=== PATIENT | male | born 1970 | race Caucasian/White ===

== ENCOUNTER 2017-03-23 11:09 | Outpatient (CLI) | payer BC, OTHER ==
[2017-03-23 12:31] LABS: Hemoglobin 11.3 g/dL (14.0-18.0); Mean Corpuscular HGB CONC 32.4 g/dL (32.0-36.0); Mean Corpuscular Hemoglobin 24.1 pg (27.0-31.0); Mean Corpuscular Volume 74.3 fl (80.0-94.0); Mean Platelet Volume 6.8 fL (7.4-10.4); Platelet Count 114 thou/uL (130-400); RBC Distribution Width 14.5 % (11.5-14.5); Red Blood Cell (RBC) Count 4.68 mill/uL (4.70-6.10); White Blood Cell (WBC) Count 5.7 thou/uL (4.8-10.8)
[2017-03-23 12:49] LABS: ALT (SGPT) 18 U/L (8-55); AST (SGOT) 16 U/L (5-34); Albumin 3.7 g/dL (3.5-5.0); Alkaline Phosphatase 80 U/L (40-150); Anion Gap 14 mmol/L (10-20); BUN (Urea Nitrogen) 19 mg/dL (8.9-20.6); Bilirubin, Total 0.4 mg/dL (0.2-1.2); Calc. Creatinine Clearance 0 mL/min (70-130); Calcium 9.2 mg/dL (7.8-10.44); Carbon Dioxide 27 mmol/L (22-29); Cardiac Risk 3.1 (Less than 4.5); Chloride 106 mmol/L (98-107); Cholesterol 84 mg/dl (< 200 Desired); Estimated GFR-MDRD 57; Globulin 5.1 g/dL (2.4-3.5); Glucose 77 mg/dL (70-105); HDL Cholesterol 27 mg/dL (>60 Neg Risk); LDL Cholesterol, Calculated 46 mg/dL; Potassium 4.5 mmol/L (3.5-5.1); Protein, Total 8.8 g/dL (6.0-8.3); Sodium 142 mmol/L (136-145); Triglycerides 57 mg/dL (Less than 150); Uric Acid 8.7 mg/dL (3.5-7.2)
[2017-03-23 12:54] LABS: Eosinophils 2 % (0-10); Lymphocytes 61 % (21-51); MDiff Complete? YES; Microcytosis SLIGHT = 6-15 cells (100X) (0-5/hpf); Monocytes 6 % (0-10); Neutrophil 31 % (42-75); PLT Morphology Comment Appears Decreased
== END 2017-03-23 11:10 | disposition home or self-care (01) ==
LOC: HPCALD 11:09
PROVIDERS: ATTEND Physician Assistant
DX: Z13.220 Encounter for screening for lipoid disorders (principal); M1A.09X0 Idiopathic chronic gout, multiple sites, without tophus (tophi)
CPT/HCPCS: 36415; 80053; 80061; 84443; 84550; 85025

== ENCOUNTER 2021-01-04 15:43 | Emergency (ER) | payer BC, SELFPAY ==
[~2021-01-04 15:43] MED LIST: Iopamidol 370 76% 100 ML VIAL ONE
[2021-01-04] MEDS ORDERED: Aspirin Chewable 81 MG TAB ONE ×2 (16:14→16:39)
[2021-01-04] MEDS ORDERED: cefTRIAXone\\ROCEPHIN 2 GM VIAL ONE (16:14)
[2021-01-04] MEDS ORDERED: methylPREDNISolone Sod Succ/PF 125 MG/2 ML VIAL ONE (16:14)
[2021-01-04] MEDS ORDERED: Azithromycin 500 MG VIAL ONE ×2 (16:14→17:37)
[2021-01-04] MEDS ORDERED: Albuterol Sulfate 1.25 MG/3 ML NEB ONE ×2 (16:14→16:49)
[2021-01-04] MEDS ORDERED: Morphine 4 MG/ML VIAL ONE ×2 (16:16→16:54)
[2021-01-04] MEDS ORDERED: Sodium Chloride 0.9% 100 ML ONE (16:16)
[2021-01-04 16:19] LABS: Hemoglobin 15.7 g/dL (14.0-18.0); Mean Corpuscular HGB CONC 31.5 g/dL (32.0-36.0); Mean Corpuscular Hemoglobin 27.4 pg (27.0-31.0); Mean Corpuscular Volume 87.1 fL (78.0-98.0); Mean Platelet Volume 12.8 fL (7.4-10.4); Platelet Count 174 thou/uL (130-400); RBC Distribution Width 14.2 % (11.5-14.5); Red Blood Cell (RBC) Count 5.73 mill/uL (4.70-6.10); White Blood Cell (WBC) Count 20.2 thou/uL (4.8-10.8)
[2021-01-04] MEDS ORDERED: Fentanyl 100 MCG/2 ML VIAL ONE (16:20)
[2021-01-04 16:36] LABS: ALT (SGPT) 34 U/L (8-55); AST (SGOT) 20 U/L (5-34); Albumin 4.1 g/dL (3.5-5.0); Alkaline Phosphatase 103 U/L (40-110); Anion Gap 20 mmol/L (10-20); BUN (Urea Nitrogen) 10 mg/dL (8.4-25.7); Bilirubin, Total 2.2 mg/dL (0.2-1.2); Calc. Creatinine Clearance 0 mL/min (70-130); Calcium 10.1 mg/dL (7.8-10.44); Carbon Dioxide 25 mmol/L (22-29); Chloride 98 mmol/L (98-107); Glucose 139 mg/dL (70-105); Lipase 23 U/L (8-78); Potassium 3.1 mmol/L (3.5-5.1); Protein, Total 8.1 g/dL (6.0-8.3); Sodium 140 mmol/L (136-145)
[2021-01-04 16:38] LABS: Band 7 % (5-11); Large Platelets SLIGHT; Lymphocytes 1 % (21-51); MDiff Complete? YES; Monocytes 1 % (0-10); Neutrophil 89 % (42-75); Reactive Lymphocytes 2 % (0-10); Toxic Granulation SLIGHT; Vacuoles SLIGHT
[2021-01-04] MEDS ORDERED: Potassium Chloride 20 MEQ TAB ONE (16:54)
[2021-01-04 17:25] LABS: SARS-CoV-2 NAA Rapid Test Not Detected (NotDetected)
== END 2021-01-04 18:01 | disposition short-term general hospital (02) ==
LOC: BURERS 15:43
DX: A41.9 Sepsis, unspecified organism (principal); J18.9 Pneumonia, unspecified organism; R65.20 Severe sepsis without septic shock; I10 Essential (primary) hypertension; J90 Pleural effusion, not elsewhere classified; M10.9 Gout, unspecified; C88.0 Waldenstrom macroglobulinemia; M19.90 Unspecified osteoarthritis, unspecified site; F17.220 Nicotine dependence, chewing tobacco, uncomplicated; Z20.822 Contact with and (suspected) exposure to COVID-19; Z79.899 Other long term (current) drug therapy
CPT/HCPCS: 0240U; 71045; 71275; 80053; 83605; 83690; 83880; 84484; 85025; 85379; 87040; 93005; 96365; 96367; 96375; J0456; J0696; J2270; J2930; J3010; J3490; J7620; Q9967

== ENCOUNTER 2021-10-16 12:19 | Emergency (ER) | payer BC ==
[2021-10-16] MEDS ORDERED: Atropine Sulfate 1 mg/10 ml Syringe IVP ONE (12:20)
[2021-10-16] MEDS ORDERED: Calcium Chloride 1 GM/10 ML Abboject SYRINGE IVP ONE (12:20)
[2021-10-16] MEDS ORDERED: Rocuronium Bromide 10 MG/ML (10ML VIAL) IVPB ONE (12:20)
[2021-10-16] MEDS ORDERED: Sodium Bicarb 50 MEQ/50 ML Abboject 8.4% SYRINGE IVP ONE (12:20)
[2021-10-16] MEDS ORDERED: EPINEPHrine 1 MG/10 ML Abboject SYRINGE IVP ONE (12:20)
[2021-10-16] MEDS ORDERED: Ondansetron PF 4 MG/2 ML Vial ONE (12:33)
[2021-10-16 12:55] LABS: Hemoglobin 15.1 g/dL (14.0-18.0); Mean Corpuscular HGB CONC 33.8 g/dL (32.0-36.0); Mean Corpuscular Hemoglobin 27.5 pg (27.0-31.0); Mean Corpuscular Volume 81.3 fL (78.0-98.0); Mean Platelet Volume 13.7 fL (7.4-10.4); Platelet Count 112 thou/uL (130-400); RBC Distribution Width 13.2 % (11.5-14.5); Red Blood Cell (RBC) Count 5.51 mill/uL (4.70-6.10); White Blood Cell (WBC) Count 12.8 thou/uL (4.8-10.8)
[2021-10-16] MEDS ORDERED: Fentanyl 100 MCG/2 ML VIAL ONE ×2 (12:58→13:21)
[2021-10-16] MEDS ORDERED: Aspirin Chewable 81 MG TAB ONE (12:59)
[2021-10-16 13:01] LABS: ALT (SGPT) 62 U/L (8-55); AST (SGOT) 146 U/L (5-34); Albumin 3.4 g/dL (3.5-5.0); Alkaline Phosphatase 148 U/L (40-110); Anion Gap 33 mmol/L (10-20); BUN (Urea Nitrogen) 32 mg/dL (8.4-25.7); Bilirubin, Total 13.8 mg/dL (0.2-1.2); Calc. Creatinine Clearance 0 mL/min (70-130); Calcium 9.1 mg/dL (7.8-10.44); Carbon Dioxide 14 mmol/L (22-29); Chloride 83 mmol/L (98-107); Globulin 3.6 g/dL (2.4-3.5); Glucose 97 mg/dL (70-105)
[2021-10-16] MEDS ORDERED: cefTRIAXone\\ROCEPHIN 2 GM VIAL ONE (13:11)
[2021-10-16] MEDS ORDERED: Enoxaparin Sodium 100 MG/ML SYRINGE ONE (13:12)
[2021-10-16 13:15] LABS: Potassium 3.7 mmol/L (3.5-5.1); Sodium 126 mmol/L (136-145)
[2021-10-16 13:48] LABS: CKMB 20.3 ng/mL (0-6.6)
[2021-10-16] MEDS ORDERED: Norepinephrine 4 MG/4 ML VIAL ONE (13:55)
[2021-10-16] MEDS ORDERED: DOBUTamine 500 mg/250 ml 250 ML ONE (14:28)
[2021-10-16 14:52] LABS: Base Excess-Venous -14.2 mmol/L (-2.0 to 3.0); Bicarbonate (HCO3v) 14.6 mmol/L (22.0-28.0); CO2 Tension (PvCO2) 44.2 mmHg (42.0-51.0); Calcium, Ionized 0.85 mmol/L (1.15-1.33); Chloride 87 mmol/L (98-107); Hemoglobin - Calc 12.6 g/dL (14.0-18.0); Potassium 4.9 mmol/L (3.5-5.1); Sodium 124 mmol/L (138-145); T. Carbon Dioxide 15.9 mmol/L (22.0-28.0)
[2021-10-16 15:03] LABS: Band 57 % (5-11); Giant Platelets SLIGHT; Large Platelets SLIGHT; Lymphocytes 2 % (21-51); MDiff Complete? YES; Monocytes 2 % (0-10); Neutrophil 27 % (42-75); Platelet Morphology Comment Appears Decreased; Reactive Lymphocytes 1 % (0-10); Reflex for Review?? YES; Toxic Granulation SLIGHT; Vacuoles SLIGHT
[2021-10-16 15:38] LABS: Troponin I 1.503 ng/mL (< 0.028)
== END 2021-10-16 14:33 | disposition expired ==
LOC: BURERS 12:19
DX: I46.9 Cardiac arrest, cause unspecified (principal); I24.9 Acute ischemic heart disease, unspecified; I10 Essential (primary) hypertension; I26.99 Other pulmonary embolism without acute cor pulmonale; N17.9 Acute kidney failure, unspecified; K76.9 Liver disease, unspecified; M10.9 Gout, unspecified; M19.90 Unspecified osteoarthritis, unspecified site; F17.220 Nicotine dependence, chewing tobacco, uncomplicated; Z79.51 Long term (current) use of inhaled steroids; Z79.899 Other long term (current) drug therapy
CPT/HCPCS: 31500; 36415; 71045; 80053; 82140; 82330; 82553; 82803; 83605; 83880; 84484; 85025; 85060; 85379; 87040; 87077; 87149; 87186; 92950; 93005; 96372; 96374; 96375; 96376; J0171; J0461; J0696; J1250; J1650; J2405; J2997; J3010